=== PATIENT | female | born 1950 | race Hispanic/Latino ===

== ENCOUNTER 2016-10-31 19:57 | Emergency (ER) | payer MEDICARE, OTHER ==
--- NOTE | 2016-10-31 21:31 | Cat Scan Report ---
FINAL REPORT EXAM: CT ABDOMEN PELVIS WO CON HISTORY: L flank pain, urinary retention TECHNIQUE: Unenhanced stone protocol CT of the abdomen and pelvis at 1.25 millimeter axial increments. Coronal and sagittal reconstruction was also performed. PRIORS: None. FINDINGS: There is 4 mm calculus just inside the bladder wall at the left ureterovesical junction. This is associated with severe hydronephrosis of the left hydroureter. The ureter measures 12 mm in diameter. Findings suggest residual edema at the ureterovesical junction. There are multiple other 1-2 mm nonobstructing calculi present bilaterally. No evidence for bladder mass is seen. Otherwise, within the limits of a noncontrast exam, the liver, spleen, pancreas, gallbladder, and adrenal glands are unremarkable. No evidence for retroperitoneal or pelvic lymphadenopathy is seen. The bowel loops have normal caliber. No fluid collection, inflammatory change, or free air is seen within the abdomen or pelvis. The appendix is normal. Within the pelvis, the uterus has been surgically removed. Images through the upper abdomen include the lung bases which demonstrates linear atelectasis in the right lower lobe. A small hiatal hernia is noted. Bony structures show degenerative disc narrowing at multiple levels of the lumbar spine. There is an S shaped scoliosis of the thoracolumbar spine. IMPRESSION: 1. 4.0 mm calculus likely recently passed into the bladder with residual edema at the left ureterovesical junction and severe hydronephrosis of the left collecting system. 2. Small hiatal hernia 3. Linear atelectasis in the right lower lobe.
[2016-10-31 21:39] LABS: Bilirubin,Urine NEG (Negative); Blood,Urine MOD (Negative); Ketones,Urine NEG (Negative); Leukocyte Esterase,Urine SM (Negative); Nitrite,Urine NEG (Negative); Protein,Urine <15 mg/dL mg/dL (Negative); Urobilinogen,Urine < 2.0 mg/dL (<2.0)
[2016-10-31 21:40] LABS: Mucus,Urine FEW /HPF
[2016-10-31 22:15] LABS: Basophils % (Auto) 0.1 % (0.0-1.8); Eosinophils % (Auto) 1.5 % (0.0-4.3); Hematocrit 41.2 % (30.3-42.9); Mean Corpuscular HGB Conc 34 % (30-34); Mean Corpuscular Hemoglobin 30 pg (28-32); Mean Corpuscular Volume 90 fl (79-97); Platelet Count 215 K/mm3 (140-440); Red Cell Distribution Width 13.5 % (13.2-15.2); White Blood Count 8.2 K/mm3 (4.5-11.0)
[2016-10-31 22:26] LABS: Alanine Aminotransferase 12 units/L (7-56); Albumin 4.5 g/dL (3.9-5); Albumin/Globulin Ratio 1.3 %; Alkaline Phosphatase 72 units/L (35-129); Anion Gap 20 mmol/L; Blood Urea Nitrogen 9 mg/dL (7-17); Carbon Dioxide 22 mmol/L (22-30); Chloride 99.4 mmol/L (98-107); Glucose 115 mg/dL (65-100); Lipase 25 units/L (13-60); Potassium 4.4 mmol/L (3.6-5.0); Sodium 137 mmol/L (137-145); Total Protein 8.1 g/dL (6.3-8.2)
[2016-11-01] MEDS ORDERED: ZOFRAN ODT PO ONE (01:08)
--- NOTE | 2016-11-01 01:13 | Emergency Department Report ---
HPI - General Chief Complaint: Abdominal Pain Time Seen by Provider: 10/31/16 23:50 - HPI HPI: a 66-year-old female with a history of kidney stones who presents to ED complaining of flank pain starting yesterday. Patient describes pain as colicky in nature. She rates pain as 6 out of 10 in nature. She denies fevers/chills/nausea/vomiting/abdominal pain/chest pain or any other problems. ED Past Medical Hx - Past Medical History Previous Medical History?: Yes Additional medical history: Kidney Stones. Back Pain. Swallowing Problems - Surgical History Past Surgical History?: Yes Additional Surgical History: HYST. Foot - Bilateral - Social History Smoking Status: Never Smoker Substance Use Type: None - Medications Home Medications: Home Medications Medication Instructions Recorded Confirmed Last Taken Type Ibuprofen [Motrin 800 MG tab] 800 mg PO Q8HR PRN #30 tablet 11/01/16 Unknown Rx Meloxicam [Mobic] 7.5 mg PO BID #30 tablet 11/01/16 Unknown Rx Ondansetron [Zofran ODT TAB] 8 mg PO TID #24 tab.rapdis 11/01/16 Unknown Rx Sulfamethoxazole/Trimethoprim 1 each PO BID #14 tablet 11/01/16 Unknown Rx [Bactrim DS TAB] diphenhydrAMINE [Benadryl CAP] 25 mg PO QHS PRN #20 capsule 11/01/16 Unknown Rx ED Review of Systems ROS: Stated complaint: PAIN IN LOWER LEFT SIDE, NAUSEA, Other details as noted in HPI Constitutional: denies: chills, fever Eyes: denies: eye pain, eye discharge, vision change ENT: denies: ear pain, throat pain, dental pain, congestion Respiratory: denies: cough, shortness of breath, wheezing Cardiovascular: denies: chest pain, palpitations Endocrine: no symptoms reported Gastrointestinal: denies: abdominal pain, nausea, diarrhea Genitourinary: hematuria. denies: urgency, dysuria, frequency, discharge, abnormal menses, dyspareunia Musculoskeletal: denies: back pain, joint swelling, arthralgia Skin: denies: rash, lesions Neurological: denies: headache, weakness, numbness, paresthesias, confusion, abnormal gait Psychiatric: denies: anxiety, depression Hematological/Lymphatic: denies: easy bleeding, easy bruising, swollen glands Physical Exam - Physical Exam Vital Signs: Vital Signs 10/31/16 20:39 Temperature 98.5 F Pulse Rate 87 Respiratory 20 Rate Blood Pressure 174/97 [Right] O2 Sat by Pulse 100 Oximetry Physical Exam: GENERAL: Alert and oriented x3, no apparent distress, Normal Gait, atraumatic. HEAD: Head is normocephalic and a-traumatic. EYES: Extra ocular muscles are intact. Pupils are equal, round, and reactive to light and accommodation. EARS: symetrical, atraumatic, non tender, ear canal clear and moderate cerumen, tympanic membrance non inflamed. gross auditory nml bilaterally. LUNGS: Symetrical with respiration, No wheezing, no rales or crackles, CTAB. HEART: S1, S2 present, regular rate and rhythm without murmur, no rubs, no gallops. Non tender to palpation ABDOMEN: No organomegaly was noted,Positive bowel sounds, soft, and non- distended. . Nontender to palpation on all Quadrants, NO CVA tenderness. EXTREMITIES/MUSCULOSKELETAL: No cyanosis, clubbing, rash, lesions or edema. Full ROM bilaterally. UE/LE Pulses 2+ bilaterally. NEUROLOGIC: The patient is cooperative with no focal neurologic deficits. . PSYCHIATRIC: Mood is congruent with affect, denies suicidal or homicidal ideations. SKIN: Warm and dry, No lesions, No ulceration or induration present. ED Course Vital Signs 10/31/16 20:39 Temperature 98.5 F Pulse Rate 87 Respiratory 20 Rate Blood Pressure 174/97 [Right] O2 Sat by Pulse 100 Oximetry ED Medical Decision Making - Lab Data Result diagrams: 10/31/16 21:22 10/31/16 21:22 Laboratory Tests 10/31/16 10/31/16 10/31/16 21:00 21:22 21:22 WBC 8.2 RBC 4.60 Hgb 14.0 Hct 41.2 MCV 90 MCH 30 MCHC 34 RDW 13.5 Plt Count 215 Lymph % (Auto) 16.7 [place] % (Auto) 5.7 Eos % (Auto) 1.5 Baso % (Auto) 0.1 Lymph # 1.4 [place] # 0.5 Eos # 0.1 Baso # 0.0 Seg Neutrophils % 76.0 H Seg Neutrophils # 6.3 Sodium 137 Potassium 4.4 Chloride 99.4 Carbon Dioxide 22 Anion Gap 20 BUN 9 Creatinine 0.5 L Estimated GFR > 60 BUN/Creatinine Ratio 18.00 Glucose 115 H Calcium 10.0 Total Bilirubin 0.50 AST 18 ALT 12 Alkaline Phosphatase 72 Total Protein 8.1 Albumin 4.5 Albumin/Globulin Ratio 1.3 Lipase 25 Urine Color Straw Urine Turbidity Clear Urine pH 5.0 Ur Specific [place] 1.008 Urine Protein <15 mg/dl Urine Glucose (UA) Neg Urine Ketones Neg Urine Blood Mod Urine Nitrite Neg Urine Bilirubin Neg Urine Urobilinogen < 2.0 Ur Leukocyte Esterase Sm Urine WBC (Auto) 3.0 Urine RBC (Auto) 3.0 U Epithel Cells (Auto) 1.0 Urine Mucus Few - Radiology Data Radiology results: report reviewed, image reviewed FINAL REPORT EXAM: CT ABDOMEN PELVIS WO CON HISTORY: L flank pain, urinary retention TECHNIQUE: Unenhanced stone protocol CT of the abdomen and pelvis at 1.25 millimeter axial increments. Coronal and sagittal reconstruction was also performed. PRIORS: None. FINDINGS: There is 4 mm calculus just inside the bladder wall at the left ureterovesical junction. This is associated with severe hydronephrosis of the left hydroureter. The ureter measures 12 mm in diameter. Findings suggest residual edema at the ureterovesical junction. There are multiple other 1-2 mm nonobstructing calculi present bilaterally. No evidence for bladder mass is seen. Otherwise, within the limits of a noncontrast exam, the liver, spleen, pancreas, gallbladder, and adrenal glands are unremarkable. No evidence for retroperitoneal or pelvic lymphadenopathy is seen. The bowel loops have normal caliber. No fluid collection, inflammatory change, or free air is seen within the abdomen or pelvis. The appendix is normal. Within the pelvis, the uterus has been surgically removed. Images through the upper abdomen include the lung bases which demonstrates linear atelectasis in the right lower lobe. A small hiatal hernia is noted. Bony structures show degenerative disc narrowing at multiple levels of the lumbar spine. There is an S shaped scoliosis of the thoracolumbar spine. IMPRESSION: 1. 4.0 mm calculus likely recently passed into the bladder with residual edema at the left ureterovesical junction and severe hydronephrosis of the left collecting system. 2. Small hiatal hernia 3. Linear atelectasis in the right lower lobe. Transcribed By: [facility] Dictated By: GERARDO SOLIS MD Electronically Authenticated By: GERARDO SOLIS MD Signed Date/Time: 10/31/162125 - Medical Decision Making 66-year-old female presents with kidney stone passed into the bladder ED course: CBC, CMP, urinalysis all ordered a CT scan of the abdomen. CT scan report shows above I discussed the case with Dr. Bella who agrees with plan to have the patient discharged with pain meds and no urologic follow-up. Patient is comfortable in ED she is not in any acute distress. Discussed the patient she will need to follow up with urology. Patient will receive some pain medications in case she starts to pass the stone Urethra. Antibiotics given for mild urinary tract infection I discussed with patient her CT report. She understands instructions and discussions that was given. She was resting comfortably in ED. Critical care attestation.: If time is entered above; I have spent that time in minutes in the direct care of this critically ill patient, excluding procedure time. ED Disposition Clinical Impression: Kidney calculi Hydronephrosis Qualifiers: Hydronephrosis type: other Qualified Code(s): N13.39 - Other hydronephrosis Disposition: - TO HOME OR SELFCARE Is pt being admited?: No Does the pt Need Aspirin: No Condition: Stable Instructions: Kidney Stones (ED), How to Strain Your Urine (ED), Abdominal Pain (ED), Flank Pain (ED) Additional Instructions: Follow-up with urologist as referred. Take pain medication as needed. you may pass your Stone at any time and may be in pain to to pass a stone through the ureter Prescriptions: diphenhydrAMINE [Benadryl CAP] 25 mg PO QHS PRN #20 capsule PRN Reason: Allergic Reaction Ibuprofen [Motrin 800 MG tab] 800 mg PO Q8HR PRN #30 tablet PRN Reason: Pain Meloxicam [Mobic] 7.5 mg PO BID #30 tablet Ondansetron [Zofran ODT TAB] 8 mg PO TID #24 tab.rapdis Sulfamethoxazole/Trimethoprim [Bactrim DS TAB] 1 each PO BID #14 tablet Referrals: PRIMARY CAREMD [Referring] - 3-5 Days ISIDRO VALENCIA MD [Staff Physician] - 3-5 Days RUBEN LANDIS MD [Referring] - 3-5 Days VIOLETA WEINSTEIN MD [Referring] - 3-5 Days Forms: Accompanied Note, Work/School Release Form(ED) Time of Disposition: 01:38
[2016-11-01 02:07] VITALS: BP 144/78
== END 2016-11-01 02:02 | disposition home or self-care (01) ==
LOC: ED 19:57
DX: N20.0 Calculus of kidney (principal); N13.39 Other hydronephrosis
CPT/HCPCS: 36415; 74176; 80053; 81001; 83690; 85025; Q0162

== ENCOUNTER 2017-09-11 09:54 | Outpatient (CLI) | payer MEDICARE, OTHER ==
--- NOTE | 2017-09-11 13:40 | Mammography Report ---
BILATERAL DIGITAL SCREENING MAMMOGRAM with CAD : 09/11/17 09:54:00 CLINICAL: Routine screening. COMPARISON:01/06/14 FINDINGS: The breasts are heterogeneously dense, which may obscure small masses.A cluster of right upper calcifications is stable. No mass, architectural distortion or suspicious calcifications. IMPRESSION: No mammographic evidence of malignancy. BI-RADS CATEGORY: 2 -- Benign RECOMMENDATION: Routine mammographic screening in one year. COMMENT: Patient follow-up letters are generated by our [employer] application.
== END 2017-09-11 09:55 | disposition home or self-care (01) ==
LOC: MAMMO 09:54
PROVIDERS: ATTEND Obstetrics & Gynecology
DX: Z12.31 Encounter for screening mammogram for malignant neoplasm of breast (principal)
CPT/HCPCS: 77067

== ENCOUNTER 2018-10-27 11:17 | Outpatient (CLI) | payer MEDICARE ==
--- NOTE | 2018-10-27 12:38 | Mammography Report ---
BILATERAL DIGITAL SCREENING MAMMOGRAM WITH CAD INDICATION: Routine screening mammography. TECHNIQUE: Digital bilateral 2D mammography was obtained in the craniocaudal and mediolateral obliq ue projections. This examination was interpreted with the benefit of Computer-Aided Detection analysi s. COMPARISON: 09/11/2017 FINDINGS: Breast Density: The breasts are heterogeneously dense, which may obscure small masses. No mass, architectural distortion or suspicious calcifications. IMPRESSION:No mammographic evidence of malignancy. BI-RADS Category 2: Benign. No mammographic evidence of malignancy. Recommend routine screening ma mmography in one year. A "normal" or negative report should not discourage follow up or biopsy of a clinically significant f inding. A written summary of these findings will be mailed to the patient. The patient will be entered into a mammography reporting system which will generate a reminder letter for the patient's next appointmen t at the appropriate interval. The [employer] recommends yearly mammograms starting at age 40 and continuing as l joe as a woman is in good health. Breast MRI is recommended for women with an approximate 20-25% or greater lifetime risk of breast cancer, including women with a strong family history of breast or ova gloria cancer or who have been treated for Hodgkin's disease. Signer Name: Duglas Lieberman MD Signed: 10/27/2018 12:34 PM Workstation Name: [id number]
== END 2018-10-27 11:18 | disposition home or self-care (01) ==
LOC: MAMMO 11:17
PROVIDERS: ATTEND Family Medicine
DX: Z12.31 Encounter for screening mammogram for malignant neoplasm of breast (principal)
CPT/HCPCS: 77067

== ENCOUNTER 2020-08-11 12:08 | Emergency (ER) | payer MEDICARE ==
--- NOTE | 2020-08-11 14:25 | Event Note ---
ED Screening Note Date of service: 08/11/20 Time: 14:24 ED Screening Note: 70-year-old female presents to the emergency room for left upper quadrant pain that radiates to the back and to the epigastric area. Patient states has been going on intermittently for about a month but has gotten worse. Patient does admit to nausea but no vomiting. Patient denies any fever or chills. This initial assessment/diagnostic orders/clinical plan/treatment(s) is/are subject to change based on patients health status, clinical progression and re- assessment by fellow clinical providers in the ED. Further treatment and workup at subsequent clinical providers discretion. Patient/guardian urged not to elope from the ED as their condition may be serious if not clinically assessed and managed. Initial orders include:
[2020-08-11 14:40] LABS: Basophils % (Auto) 0.3 % (0.0-1.8); Eosinophils # (Auto) 0.2 K/mm3 (0.0-0.4); Eosinophils % (Auto) 3.1 % (0.0-4.3); Hematocrit 41.9 % (30.3-42.9); Hemoglobin 14.3 gm/dl (10.1-14.3); Lymphocytes # (Auto) 1.8 K/mm3 (1.2-5.4); Lymphocytes % (Auto) 32.8 % (13.4-35.0); Mean Corpuscular HGB Conc 34 % (30-34); Mean Corpuscular Volume 89 fl (79-97); Monocytes # (Auto) 0.4 K/mm3 (0.0-0.8); Monocytes % (Auto) 7.8 % (0.0-7.3); Platelet Count 217 K/mm3 (140-440); Red Blood Count 4.69 M/mm3 (3.65-5.03); Red Cell Distribution Width 13.5 % (13.2-15.2)
[2020-08-11 14:42] LABS: Alanine Aminotransferase 12 units/L (7-56); Albumin 4.3 g/dL (3.9-5); Blood Urea Nitrogen 10 mg/dL (7-17); Calcium 9.9 mg/dL (8.4-10.2); Hemolysis Index 7
[2020-08-11 14:48] LABS: BUN/Creatinine Ratio 20
--- NOTE | 2020-08-11 17:40 | Emergency Department Report ---
ED General Adult HPI - General Chief complaint: Pain General Stated complaint: LEFT SIDE BURNING PAINS Time Seen by Provider: 08/11/20 16:16 Source: patient Mode of arrival: Ambulatory Limitations: No Limitations - History of Present Illness Initial comments: 70-year-old female patient with history of hypertension, HLD, and GERD presents with complaints of left upper abdominal pain intermittently x1 month. Patient states over the past few days her pain has been worsening. She rates her pain as a 7/10 in severity and describes it as a fullness and tightness. Pain radiates to the left flank area per patient. She also admits to a history of kidney stones, but denies any urinary symptoms. She also denies any nausea/vomiting/diarrhea, constipation, hematochezia/melena, fever/chills/sweats, chest pain, or shortness of breath. Abdominal surgical history includes a hysterectomy. -: Gradual - Related Data Previous Rx's Medication Instructions Recorded Last Taken Type Ibuprofen [Motrin 800 MG tab] 800 mg PO Q8HR PRN #30 tablet 11/01/16 Unknown Rx Meloxicam [Mobic] 7.5 mg PO BID #30 tablet 11/01/16 Unknown Rx Ondansetron [Zofran ODT TAB] 8 mg PO TID #24 tab.rapdis 11/01/16 Unknown Rx Sulfamethoxazole/Trimethoprim 1 each PO BID #14 tablet 11/01/16 Unknown Rx [Bactrim DS TAB] diphenhydrAMINE [Benadryl CAP] 25 mg PO QHS PRN #20 capsule 11/01/16 Unknown Rx Dicyclomine [Bentyl] 20 mg PO QID PRN #40 tablet 08/11/20 Unknown Rx Pantoprazole [Protonix] 40 mg PO QAM #14 tablet 08/11/20 Unknown Rx Sucralfate [Carafate] 1 gm PO Q6HR 10 Days #40 tablet 08/11/20 Unknown Rx Allergies Allergy/AdvReac Type Severity Reaction Status Date / Time codeine Allergy Nausea Verified 11/01/16 01:20 ED Review of Systems ROS: Stated complaint: LEFT SIDE BURNING PAINS Other details as noted in HPI Constitutional: denies: chills, diaphoresis, fever, malaise, weakness Respiratory: denies: cough, shortness of breath Cardiovascular: denies: chest pain Gastrointestinal: abdominal pain. denies: nausea, vomiting, diarrhea, constipation, hematemesis, melena, hematochezia Genitourinary: denies: dysuria, frequency, hematuria, abnormal menses Skin: denies: rash, change in color Neurological: denies: headache, paresthesias Hematological/Lymphatic: denies: swollen glands ED Past Medical Hx - Past Medical History Previous Medical History?: Yes Additional medical history: Kidney Stones. Back Pain. Swallowing Problems - Surgical History Past Surgical History?: Yes Additional Surgical History: HYST. Foot - Bilateral - Social History Smoking Status: Never Smoker Substance Use Type: None - Medications Home Medications: Home Medications Medication Instructions Recorded Confirmed Last Taken Type Ibuprofen [Motrin 800 MG tab] 800 mg PO Q8HR PRN #30 tablet 11/01/16 Unknown Rx Meloxicam [Mobic] 7.5 mg PO BID #30 tablet 11/01/16 Unknown Rx Ondansetron [Zofran ODT TAB] 8 mg PO TID #24 tab.rapdis 11/01/16 Unknown Rx Sulfamethoxazole/Trimethoprim 1 each PO BID #14 tablet 11/01/16 Unknown Rx [Bactrim DS TAB] diphenhydrAMINE [Benadryl CAP] 25 mg PO QHS PRN #20 capsule 11/01/16 Unknown Rx Dicyclomine [Bentyl] 20 mg PO QID PRN #40 tablet 08/11/20 Unknown Rx Pantoprazole [Protonix] 40 mg PO QAM #14 tablet 08/11/20 Unknown Rx Sucralfate [Carafate] 1 gm PO Q6HR 10 Days #40 tablet 08/11/20 Unknown Rx ED Physical Exam - General Limitations: No Limitations General appearance: alert, in no apparent distress - Head Head exam: Present: atraumatic, normocephalic - Eye Eye exam: Present: normal appearance - Neck Neck exam: Present: normal inspection - Respiratory Respiratory exam: Present: normal lung sounds bilaterally. Absent: respiratory distress - Cardiovascular Cardiovascular Exam: Present: regular rate, normal rhythm - GI/Abdominal GI/Abdominal exam: Present: soft, distended (Minimal), tenderness (Left upper quadrant, epigastric). Absent: guarding, rebound, rigid, normal bowel sounds - Extremities Exam Extremities exam: Present: normal inspection - Back Exam Back exam: Present: full ROM, CVA tenderness (L). Absent: CVA tenderness (R) - Neurological Exam Neurological exam: Present: alert, oriented X3, normal gait - Psychiatric Psychiatric exam: Present: normal affect, normal mood - Skin Skin exam: Present: warm, dry, intact, normal color. Absent: rash ED Course Vital Signs 08/11/20 19:48 Pulse Rate 69 Respiratory 17 Rate Blood Pressure 142/71 [Right] O2 Sat by Pulse 99 Oximetry ED Medical Decision Making - Lab Data Result diagrams: 08/11/20 13:59 08/11/20 13:59 - Radiology Data Radiology results: report reviewed CT ABDOMEN AND PELVIS WITH CONTRAST INDICATION: LUQ pain and tenderness.. TECHNIQUE: Axial CT images were obtained through the abdomen and pelvis after 100 cc Omni [address] scans at this location are performed using CT dose reduction for ALARA by means of automated exposure control. COMPARISON: CT abdomen pelvis 10/31/2016 FINDINGS: LOWER CHEST: No significant abnormality. LIVER: No significant abnormality. GALLBLADDER: No significant abnormality. BILE DUCTS: No significant abnormality. PANCREAS: No significant abnormality. SPLEEN: No significant abnormality. ADRENALS: No significant abnormality. RIGHT KIDNEY and URETER: No significant abnormality. LEFT KIDNEY and URETER: No significant abnormality. STOMACH and SMALL BOWEL: No significant abnormality. COLON: Mild sigmoid diverticulosis without diverticulitis APPENDIX: No significant abnormality. PERITONEUM: No free fluid. No free air. No fluid collection. LYMPH NODES: No significant adenopathy. AORTA and ARTERIES: No significant abnormality. IVC and VEINS: No significant abnormality. URINARY BLADDER: No significant abnormality. REPRODUCTIVE ORGANS: No significant abnormality. ADDITIONAL FINDINGS: None. SKELETAL SYSTEM: Moderate scoliosis and advanced multilevel discogenic degenerative disease. Mild left and moderate right hip degenerative arthrosis IMPRESSION: 1. Mild sigmoid diverticulosis without diverticulitis. - Medical Decision Making 70-year-old female patient with history of hypertension, HLD, and GERD presents with complaints of left upper abdominal pain intermittently x1 month. Patient states over the past few days her pain has been worsening. She rates her pain as a 7/10 in severity and describes it as a fullness and tightness. Pain radiates to the left flank area per patient. She also admits to a history of kidney stones, but denies any urinary symptoms. She also denies any nausea/vomiting/diarrhea, constipation, hematochezia/melena, fever/chills/sweats, chest pain, or shortness of breath. Abdominal surgical history includes a hysterectomy. CT abdomen and pelvis is negative for any acute abnormalities. No abnormalities noted in the left lung base on CT. CBC, CMP, lipase are normal. UA is without infection. Patient given Protonix, Pepcid, and GI cocktail. Patient states pain has significantly improved. Suspect gastritis. Recommend patient follows up with GI for further evaluation within 3 to 5 days. Discussed signs and symptoms that should prompt immediate return to the emergency department in detail with patient who verbalizes understanding. Patient is well-appearing, her vitals are normal, she is stable for discharge home. Critical care attestation.: If time is entered above; I have spent that time in minutes in the direct care of this critically ill patient, excluding procedure time. ED Disposition Clinical Impression: Upper abdominal pain Disposition: DC-01 TO HOME OR SELFCARE Is pt being admited?: No Condition: Stable Instructions: Abdominal Pain, Adult, Gastroesophageal Reflux Disease, Adult Prescriptions: Dicyclomine [Bentyl] 20 mg PO QID PRN #40 tablet PRN Reason: abdominal pain Sucralfate [Carafate] 1 gm PO Q6HR 10 Days #40 tablet Pantoprazole [Protonix] 40 mg PO QAM #14 tablet Referrals: VITE CUTLER MD [Primary Care Provider] - 3-5 Days [facility] [Provider Group] - 3-5 Days
[2020-08-11 18:14] LABS: Bacteria,Urine 1+ /HPF (Negative); Bilirubin,Urine NEG (Negative); Blood,Urine NEG (Negative); Color,Urine Straw (Yellow); Protein,Urine <15 mg/dL mg/dL (Negative); Urobilinogen,Urine < 2.0 mg/dL (<2.0); WBC,Urine < 1.0 /HPF (0.0-6.0)
--- NOTE | 2020-08-11 19:41 | Cat Scan Report ---
CT ABDOMEN AND PELVIS WITH CONTRAST INDICATION: LUQ pain and tenderness.. TECHNIQUE: Axial CT images were obtained through the abdomen and pelvis after 100 cc Omni [address]. [address] scans at this location are performed using CT dose reduction for ALARA by means of automated expos ure control. COMPARISON: CT abdomen pelvis 10/31/2016 FINDINGS: LOWER CHEST: No significant abnormality. LIVER: No significant abnormality. GALLBLADDER: No significant abnormality. BILE DUCTS: No significant abnormality. PANCREAS: No significant abnormality. SPLEEN: No significant abnormality. ADRENALS: No significant abnormality. RIGHT KIDNEY and URETER: No significant abnormality. LEFT KIDNEY and URETER: No significant abnormality. STOMACH and SMALL BOWEL: No significant abnormality. COLON: Mild sigmoid diverticulosis without diverticulitis APPENDIX: No significant abnormality. PERITONEUM: No free fluid. No free air. No fluid collection. LYMPH NODES: No significant adenopathy. AORTA and ARTERIES: No significant abnormality. IVC and VEINS: No significant abnormality. URINARY BLADDER: No significant abnormality. REPRODUCTIVE ORGANS: No significant abnormality. ADDITIONAL FINDINGS: None. SKELETAL SYSTEM: Moderate scoliosis and advanced multilevel discogenic degenerative disease. Mild lef t and moderate right hip degenerative arthrosis IMPRESSION: 1. Mild sigmoid diverticulosis without diverticulitis. Signer Name: Armando Eckert MD Signed: 08/11/2020 7:37 PM Workstation Name: [id number]
[2020-08-11 19:49] VITALS: BP 142/71
[2020-08-11] MEDS ORDERED: ALUM-MAG HYDROXIDE-SIMETHICONE 200-200-20MG/5ML ORAL LIQD 30 ML PO ONE (19:50)
[2020-08-11] MEDS ORDERED: LIDOCAINE VISCOUS 2% 15 ML ORAL LIQD PO ONE (19:50)
[2020-08-11] MEDS ORDERED: PANTOPRAZOLE 40 MG INJ IV ONE (19:50)
[2020-08-11] MEDS ORDERED: FAMOTIDINE 20 MG/2 ML INJ IV ONE (19:50)
[2020-08-11] MEDS ORDERED: DICYCLOMINE 10 MG/5 ML ORAL LIQD PO ONE (19:52)
== END 2020-08-11 21:21 | disposition home or self-care (01) ==
LOC: ED 12:08
DX: R10.12 Left upper quadrant pain (principal); Z79.899 Other long term (current) drug therapy
CPT/HCPCS: 36415; 74177; 80053; 81001; 83690; 84484; 85025; 96374; 96375; 99284; C9113; Q9967